=== PATIENT | male | born 1955 | race Two or more races ===

== ENCOUNTER 2020-11-05 18:54 | Emergency (ER) | payer MEDICAID ==
[~2020-11-05] VITALS: Ht 175.3 cm; Wt 99.8 kg
--- NOTE | 2020-11-05 19:30 | NUR ---
PATIENT BIBSELF C/O R FOOT PAIN X 2 DAYS + REDNESS. REFERRED BY URGENT CARE. PATIENT IS A/O X 4, RR EVEN AND UNLABORED, NO SOB NOTED. PATIENT CONNECTED TO MONITOR. WILL CONTINUE TO MONITOR.
--- NOTE | 2020-11-05 19:33 | NUR ---
BS NOTED AT 157
[2020-11-05] MEDS ORDERED: ACETAMINOPHEN ES 500 MG TABLET ONE (19:52)
[2020-11-05] MEDS: ACETAMINOPHEN 325 MG TABLET PO ONE (19:55)
[2020-11-05] MEDS ORDERED: AMOX-430 PO (20:11)
[2020-11-05] MEDS ORDERED: TRAM50TA2 PO (20:11)
[2020-11-05] MEDS ORDERED: ACET-2605 PO (20:11)
[2020-11-05] MEDS ORDERED: SULF1TAB48 PO (20:11)
[2020-11-05] MEDS ORDERED: SULFAMETH/TRIMETH 800/160 MG 1 UDTAB TABLET ONE (20:22)
[2020-11-05] MEDS ORDERED: TDAP [DIPH/PERTUSSIS/TET] 0.5 ML VIAL IM ONE ×2 (20:23→20:31)
[2020-11-05] MEDS ORDERED: AMOX/CLAVULANATE 875 MG TABLET ONE (20:23)
[2020-11-05] MEDS: AMOX/CLAVULANATE 875 MG TABLET PO ONE (20:31)
[2020-11-05] MEDS: SULFAMETH/TRIMETH 800/160 MG 1 UDTAB TABLET PO ONE (20:31)
[2020-11-05] MEDS: TDAP [DIPH/PERTUSSIS/TET] 0.5 ML VIAL IM ONE (20:32)
[2020-11-05 20:36] VITALS: BP 131/68
--- NOTE | 2020-11-05 20:37 | NUR ---
Patient discharged to home in stable condition. RX and Written and verbal after care instructions given. Patient verbalizes understanding of instruction.
== END 2020-11-05 20:37 | disposition home or self-care (01) ==
LOC: ER 19:03
DX: S91.111A Laceration without foreign body of right great toe without damage to nail, initial encounter (principal); S99.821A Other specified injuries of right foot, initial encounter; L03.115 Cellulitis of right lower limb; I10 Essential (primary) hypertension; E11.9 Type 2 diabetes mellitus without complications; F17.200 Nicotine dependence, unspecified, uncomplicated; Z79.899 Other long term (current) drug therapy; W22.8XXA Striking against or struck by other objects, initial encounter; Y93.89 Activity, other specified; Y92.89 Other specified places as the place of occurrence of the external cause; Y99.8 Other external cause status
CPT/HCPCS: 73630-TC; 82962-TC; 90715

== ENCOUNTER 2020-11-08 15:33 | Emergency (ER) | payer MEDICAID ==
[~2020-11-08] VITALS: Ht 177.8 cm; Wt 81.6 kg
[~2020-11-08 15:33] MED LIST: ACET-2605 PO; AMOX-430 PO; SULF1TAB48 PO; TRAM50TA2 PO
--- NOTE | 2020-11-08 16:08 | NUR ---
BIBWIFE FROM HOME TO ER BED 4. AAOX4. NOT IN RESP DISTRESS. AMBULATORY W/ A LIMP. CAME IN FOR R FOOT PAIN, SWELLING AND REDNESS X 3 DAYS. PAIN IS 9/10. PROVIDER WAS AT THE BEDSIDE FOR EVAL. ORDERS RECEIVED, NOTED AND CARRIED OUT. IV LINE ESTABLISHED ON R AC 18G, BLOOD DRAWN AND GIVEN TO PHLEB AT THE BEDSIDE.
--- NOTE | 2020-11-08 16:11 | NUR ---
PATIENT CAME INTO ER FOR A re-check (cellulitis). AOX4, NO SOB NOTED, NO C/O PAIN, NO S/O ANY ACUTE DISTRESS NOTED. KEPT COMFORTABLE IN BED. WILL CONTINUE TO MONITOR
[2020-11-08 16:17] LABS: BASOPHILS % (AUTO) 0.1 % (0.0-2.0); EOSINOPHILS % (AUTO) 1.1 % (0.0-6.0); HEMATOCRIT 38 % (39-51); HEMOGLOBIN 12.6 g/dL (13.5-17.5); LYMPHOCYTES # (AUTO) 1.7 K/uL (0.8-4.8); LYMPHOCYTES % (AUTO) 17.2 % (20.0-44.0); MEAN CORPUSCULAR HGB CONC 33 g/dl (31.0-36.0); MEAN CORPUSCULAR VOLUME 91 fL (80-96); MONOCYTES # (AUTO) 0.8 K/uL (0.1-1.30); MONOCYTES % (AUTO) 7.9 % (2.0-12.0); NEUTROPHILS # (AUTO) 7.1 K/uL (1.8-8.9); NEUTROPHILS % (AUTO) 73.7 % (43.0-81.0); PLATELET COUNT (AUTO) 217 K/uL (150-450); RED BLOOD CELL COUNT(AUTO) 4.16 MIL/uL (4.5-6.0); WHITE BLOOD COUNT (AUTO) 9.7 K/uL (4.3-11.0)
[2020-11-08] MEDS ORDERED: METF-442 PO (16:54)
[2020-11-08] MEDS ORDERED: AMLO2.5T4 PO (16:54)
[2020-11-08] MEDS ORDERED: LISI10TA29 PO (16:54)
[2020-11-08] MEDS ORDERED: GABA300C PO (16:54)
[2020-11-08] MEDS ORDERED: ASPI-1498 PO (16:54)
[2020-11-08] MEDS ORDERED: METO25TA4 PO (16:54)
[2020-11-08] MEDS ORDERED: VANCOMYCIN 1 GM VIAL ONE (16:55)
[2020-11-08] MEDS ORDERED: PIPERACILLIN /TAZOBACTAM 3.375 G VIAL IV ONE (16:55)
[2020-11-08 16:56] LABS: CHLORIDE 99 mmol/L (98-107); GLUCOSE 235 mg/dL (74-106); POTASSIUM 4.4 mmol/L (3.5-5.1); SODIUM SERUM 136 mmol/L (136-145)
[2020-11-08] MEDS ORDERED: ACETAMINOPHEN ES 500 MG TABLET ONE (16:56)
[2020-11-08 16:57] LABS: ALKALINE PHOSPHATASE 51 U/L (46-116); BILIRUBIN,DIRECT 0.1 mg/dL (0.0-0.2); CALCIUM, SERUM 9.3 mg/dL (8.5-10.1); UREA NITROGEN, BLOOD 12 mg/dL (7-18)
[2020-11-08] MEDS ORDERED: ACETAMINOPHEN 325 MG TABLET PO ONE (17:00)
[2020-11-08] MEDS ORDERED: PIPERACILLIN /TAZOBACTAM 3.375 G in IV D5W 50 ML IV ONE (17:00)
[2020-11-08] MEDS ORDERED: IV NS 0.9% 1,000 ML BAG IV ONE (17:00)
[2020-11-08 17:06] LABS: CARBON DIOXIDE 30 mmol/L (21-32); CREATININE 0.9 mg/dL (0.6-1.3)
[2020-11-08 17:07] LABS: ALANINE AMINOTRANSFERASE 16 U/L (12-78); ALBUMIN 3.3 g/dL (3.4-5.0); ASPARTATE AMINOTRANSFERASE 8 U/L (15-37); BILIRUBIN,TOTAL 0.4 mg/dL (0.2-1.0); TOTAL PROTEIN, SERUM 7.5 g/dL (6.4-8.2)
[2020-11-08] MEDS: VANCOMYCIN 1 GM in IV D5W 250 ML IV ONE ×2 (17:17→17:31)
--- NOTE | 2020-11-08 17:54 | NUR ---
Per Carolyn [phone] "Dr Smith will call you back - Pt is [place]/capitated. We will transfer."
--- NOTE | 2020-11-08 18:09 | NUR ---
covid swab done and sent to the lab
--- NOTE | 2020-11-08 19:30 | NUR ---
RECEIVED REPORT FOR EDUARDO, PATIENT VSS, IN NO ACUTE DISTRESS.
--- NOTE | 2020-11-08 21:04 | NUR ---
Marzena barger in [facility] - 11/08/20 at 2206 by PATRICIA MICHALE STOVALL
--- NOTE | 2020-11-08 22:21 | NUR ---
PT ACCEPTED AT THE [facility]. PT GOING TO ROOM 206A. NURSE TO NURSE REPORT [phone] GRETTA HERNANDEZ. ENROLLED AGENT ETA @ 1046 BY [facility]
[2020-11-08] MEDS ORDERED: CALCIUM CARBONATE 500 MG TAB.CHEW ONE (22:24)
[2020-11-08] MEDS ORDERED: CALCIUM CARBONATE 500 MG TAB.CHEW PO ONE (22:30)
--- NOTE | 2020-11-08 23:13 | NUR ---
REPORT GIVEN TO TRANSPORT TEAM FOR EDUARDO. AND TRANSFERRING RESPONSIBILITIES.
--- NOTE | 2020-11-08 23:22 | NUR ---
REPORT GIVEN TO HAKAN GLYNN AT [facility] FOR EDUARDO.
[2020-11-08 23:24] VITALS: BP 131/54
== END 2020-11-08 23:24 | disposition short-term general hospital (02) ==
LOC: EDUNIT# 15:33 → ER 15:49
DX: L03.115 Cellulitis of right lower limb (principal); S91.111D Laceration without foreign body of right great toe without damage to nail, subsequent encounter; X58.XXXD Exposure to other specified factors, subsequent encounter; Z87.891 Personal history of nicotine dependence; E11.65 Type 2 diabetes mellitus with hyperglycemia; Z79.84 Long term (current) use of oral hypoglycemic drugs; I10 Essential (primary) hypertension; D64.9 Anemia, unspecified; Z20.822 Contact with and (suspected) exposure to COVID-19; R94.31 Abnormal electrocardiogram [ECG] [EKG]
CPT/HCPCS: 36415; 71045; 80048; 80076; 83605 ×2; 85025; 87040 ×2; 87426; 93005; 96365; 96367; 99285; C9803; J2543 ×2; J3370; J7060

== ENCOUNTER 2021-11-22 05:14 | Inpatient (IN) | payer MEDICAID ==
[~2021-11-22] VITALS: Ht 167.6 cm; Wt 113.4 kg
[~2021-11-22 05:14] MED LIST changes: -ACET-2605 PO; +AMLO2.5T4 PO; -AMOX-430 PO; +ASPI-1498 PO; +GABA300C PO; +LISI10TA29 PO; +METF-442 PO; +METO25TA4 PO; -SULF1TAB48 PO; -TRAM50TA2 PO
--- NOTE | 2021-11-22 05:35 | NUR ---
BIBWIFE C/O EPIGASTRIC PAIN X1DAY +N/V -D. PLACED COMFORTABLY IN BED. VITALS CHECKED.
--- NOTE | 2021-11-22 06:08 | NUR ---
US AT BEDSIDE
--- NOTE | 2021-11-22 06:12 | NUR ---
IV CANNULA G18 INSERTED ON RIGHT AC. BLOOD DRAWN AND SENT TO LAB
--- NOTE | 2021-11-22 06:13 | NUR ---
EKG DONE AT BEDSIDE
[2021-11-22 06:21] LABS: BASOPHILS % (AUTO) 0.2 % (0.0-2.0); EOSINOPHILS % (AUTO) 0.8 % (0.0-6.0); HEMATOCRIT 38 % (39-51); HEMOGLOBIN 12.6 g/dL (13.5-17.5); LYMPHOCYTES # (AUTO) 1.3 K/uL (0.8-4.8); LYMPHOCYTES % (AUTO) 15.5 % (20.0-44.0); MEAN CORPUSCULAR HGB CONC 33 g/dl (31.0-36.0); MEAN CORPUSCULAR VOLUME 88 fL (80-96); MONOCYTES # (AUTO) 0.3 K/uL (0.1-1.30); MONOCYTES % (AUTO) 3.9 % (2.0-12.0); NEUTROPHILS # (AUTO) 6.9 K/uL (1.8-8.9); NEUTROPHILS % (AUTO) 79.6 % (43.0-81.0); PLATELET COUNT (AUTO) 178 K/uL (150-450); RED BLOOD CELL COUNT(AUTO) 4.31 MIL/uL (4.5-6.0); WHITE BLOOD COUNT (AUTO) 8.7 K/uL (4.3-11.0)
[2021-11-22] MEDS ORDERED: ONDANSETRON HCL/PF - ER 4 MG/2 ML VIAL IV ONE (06:30)
[2021-11-22] MEDS ORDERED: IV NS 0.9% 1,000 ML IV ONE (06:30)
[2021-11-22] MEDS ORDERED: MORPHINE SULFATE INJ 2 MG/ML DISP.SYRIN IV ONE (06:30)
[2021-11-22 06:35] LABS: ALANINE AMINOTRANSFERASE 16 U/L (12-78); ALBUMIN 3.7 g/dL (3.4-5.0); ALKALINE PHOSPHATASE 36 U/L (46-116); ASPARTATE AMINOTRANSFERASE 11 U/L (15-37); BILIRUBIN,DIRECT 0.1 mg/dL (0.0-0.2); BILIRUBIN,TOTAL 0.2 mg/dL (0.2-1.0); CALCIUM, SERUM 8.5 mg/dL (8.5-10.1); CARBON DIOXIDE 27 mmol/L (21-32); CHLORIDE 102 mmol/L (98-107); GLUCOSE 249 mg/dL (74-106); LIPASE 166 U/L (73-393); POTASSIUM 4.7 mmol/L (3.5-5.1); SODIUM SERUM 135 mmol/L (136-145); TOTAL PROTEIN, SERUM 6.8 g/dL (6.4-8.2); UREA NITROGEN, BLOOD 19 mg/dL (7-18)
[2021-11-22] MEDS ORDERED: ONDANSETRON HCL/PF 4 MG/2 ML VIAL ONE (06:38)
[2021-11-22] MEDS ORDERED: MORPHINE SULFATE INJ 4 MG/ML DISP.SYRIN ONE (06:38)
--- NOTE | 2021-11-22 06:48 | NUR ---
SWEETBREAD TRIMMER AT BEDSIDE.
--- NOTE | 2021-11-22 07:16 | NUR ---
PATIENT BROUGHT TO CT DEPT
--- NOTE | 2021-11-22 07:16 | NUR ---
COVID SWAB DONE AND SENT TO LAB
--- NOTE | 2021-11-22 07:16 | NUR ---
SEEN BY DR HARO AT BEDSIDE.
[2021-11-22] MEDS ORDERED: ENOXAPARIN SODIUM 80 MG/0.8 ML DISP.SYRIN SQ ONE ×2 (07:30→08:15)
[2021-11-22 08:00] LABS: BILIRUBIN,URINE NEGATIVE (NEGATIVE); COLOR,URINE YELLOW (YELLOW); LEUKOCYTE ESTERASE ,URINE NEGATIVE (NEGATIVE); NITRITE, URINE NEGATIVE (NEGATIVE); PH,URINE 5.5 (5.0-8.0); PROTEIN,URINE NEGATIVE (NEGATIVE); UGLUCOSE 250 MG/DL mg/dL (NEGATIVE); UROBILINOGEN,URINE 0.2 EU/dL (0.2)
[2021-11-22 08:25] LABS: RBC,URINE 0-2 /HPF (0-2); WBC,URINE 0-2 /HPF (0-3)
[2021-11-22 08:26] LABS: BACTERIA,URINE Rare /HPF (None Seen); SQUAMOUS EPITHELIAL CELL,UR Rare /HPF (None Seen)
[2021-11-22] MEDS ORDERED: CHOL100043 PO (08:32)
[2021-11-22] MEDS ORDERED: IBUP-1957 PO (08:32)
[2021-11-22] MEDS ORDERED: SEMA0.25 SQ (08:32)
[2021-11-22] MEDS ORDERED: INSU100I26 SQ (08:32)
[2021-11-22] MEDS ORDERED: PANT40TA49 PO (08:32)
[2021-11-22] MEDS ORDERED: ASPI-1420 PO (08:32)
--- NOTE | 2021-11-22 08:40 | NUR ---
[facility]
--- NOTE | 2021-11-22 09:16 | NUR ---
PER FOLDER MACHINE ANA SENIOR [facility], AUTHORIZED TO STAY. WILL BE UNDER DR LIN.
[2021-11-22] MEDS ORDERED: Medication Not On Formulary EA (Semaglutide (Ozempic) 0.25 MG) SQ SCH (09:30)
[2021-11-22] MEDS ORDERED: AMLODIPINE BESYLATE 2.5 MG TABLET PO SCH (09:30)
[2021-11-22 09:45] LABS: THYROID STIMULATING HORMONE 0.912 uIU/mL (0.358-3.74)
--- NOTE | 2021-11-22 09:48 | NUR ---
DR. LIN SPEAKING WITH DR. AHMADI.
--- NOTE | 2021-11-22 10:55 | NUR ---
[facility] BED 316-2
--- NOTE | 2021-11-22 11:10 | NUR ---
REPORT GIVEN TO KIARA GLYNN OF TELE
--- NOTE | 2021-11-22 11:10 | NUR ---
190/87 [facility], MADE DR AHMADI AWARE. RECEIVED VERBAL ORDER OF HYDRALAZINE 20MG IVP. CARRIED OUT
[2021-11-22] MEDS ORDERED: hydrALAZINE HCL IV 20 MG VIAL ONE (11:14)
[2021-11-22] MEDS ORDERED: DEXTROSE 50%-WATER 50 ML DISP.SYRIN IV PRN (11:30)
[2021-11-22] MEDS ORDERED: hydrALAZINE HCL IV 20 MG VIAL IV PRN (11:30)
[2021-11-22] MEDS: BLOOD SUGAR DIAGNOSTIC 1 EACH STRIP VI SCH ×3 (12:00→21:30)
[2021-11-22] MEDS: ATORVASTATIN 40 MG TABLET PO SCH (12:00)
[2021-11-22] MEDS: GABAPENTIN 300 MG CAPSULE PO SCH ×2 (12:00→17:24)
[2021-11-22] MEDS: LISINOPRIL (20MG) 20 MG TABLET PO SCH (12:00)
[2021-11-22] MEDS: ASPIRIN EC 81 MG TABLET.DR PO SCH (12:00)
--- NOTE | 2021-11-22 12:30 | NUR ---
RN ADMITTING NOTES PATIENT CAME FROM ED VIA GURNEY ACCOMPANIED BY TWO ER STAFF. PATIENT IS ON ROOM AIR, NO S/S OF RESPIRATORY DISTRESS. PATIENT IS ABLE TO AMBULATE TO BED, STEADY GAIT. PATIENT IS A/O x4. PATIENT VITAL SIGNS TAKEN AND STABLE. TELEMETRY MONITORING EXTERNAL PADS ARE APPLIED TO PATIENT. SHOWS SINUS RHYTHM WITH A HR OF 62. NO S/S OF CARDIAC DISTRESS OR DISCOMFORT. IV ACCESS R AC #20 G SL, INTACT AND PATENT. FULL BODY ASSESSMENT COMPLETED: CARDIAC HEART SOUNDS WNL, RESPIRATORY LUNG SOUNDS CLEAR, GI SOFT, ABDOMINAL SOUNDS PRESENT IN ALL FOUR QUADRANTS, AND SKIN IS INTACT. PATIENT STATES HIS PAIN IS ABOUT A 3/10 AND THAT HE IS OKAY. PATIENT SPEAKS OCCITAN HIS FIRST LANGUAGE, BUT UNDERSTANDS ARMENIAN. WILL CONTINUE TO MONITOR.
[2021-11-22 13:40] VITALS: BP 102/75
[2021-11-22] MEDS ORDERED: ACETAMINOPHEN 325 MG TABLET PO PRN (14:00)
[2021-11-22] MEDS ORDERED: HYDROCODONE/APAP 5/325MG TABLET PO PRN (14:00)
[2021-11-22] MEDS ORDERED: NITROGLYCERIN 0.4 MG/TAB BOTTLE SL PRN (14:00)
[2021-11-22] MEDS ORDERED: ZOLPIDEM TARTRATE 5 MG TABLET PO PRN (14:00)
[2021-11-22] MEDS ORDERED: ONDANSETRON HCL/PF 4 MG/2 ML VIAL IV PRN (14:00)
--- NOTE | 2021-11-22 14:09 | NUR ---
RN NOTES PATIENT COMPLAINED OF CHEST PAIN PRN NITROSTAT SL ADMINISTERED @1404, BP: 105/75, HR 55. WILL STAY WITH PATIENT AND REASSESS IN FIVE MINUTES.
[2021-11-22] MEDS: MORPHINE SULFATE INJ 2 MG/ML DISP.SYRIN IM PRN (14:13)
--- NOTE | 2021-11-22 14:15 | NUR ---
RN NOTES PATIENT BEGAN TO COMPLAIN OF EPIGASTRIC PAIN, DECLINED THE NEXT DOSE OF NITROSTAT AND WANTED PAIN MEDICATION. PRN MORPHINE ADMINISTERED IM @1413 FOR PAIN 02/15. NITROSTAT WASTE PUT IN RX DESTROYER WITNESSED BY RNCLYDE.
[2021-11-22] MEDS: PANTOPRAZOLE 40 MG TABLET.DR PO SCH (15:20)
[2021-11-22 16:00] VITALS: BP 155/68
[2021-11-22] MEDS: INSULIN REGULAR, HUMAN 100 UNIT/ML 3 ML VIAL SQ PRN (17:25)
--- NOTE | 2021-11-22 18:50 | NUR ---
BANK ACCOUNTANT CLOSING NOTE PATIENT IS A/O X 4, INTERMITTENTLY SLEEPING, ON ROOM AIR, NO S/S OF RESPIRATORY DISTRESS. PATIENT IS ABLE TO AMBULATE TO BED, STEADY GAIT. WITH AT BEDSINDE, NOT COMPLAINING OF PAIN AT THE MOMENT. PATIENT IS ON TELE MONITOR, SHOWS SINUS RHYTHM WITH PAC'S AND HR AT 65. NO S/S OF CARDIAC DISTRESS OR DISCOMFORT. IV ACCESS R AC #20 G SL, INTACT AND PATENT. PATIENT WITH OCCASIONAL EPIGASTRIC DISCOMFORT, WITH PAIN MANAGEMENT. ENDORSED TO NEXT SHIFT FOR CONTINUITY OF CARE.
--- NOTE | 2021-11-22 19:25 | NUR ---
RN NOTE PT AWAKE IN BED, A/OX4, ABLE TO VERBALIZE ALL NEEDS. AT BEDSIDE. PT DENIES PAIN AT THIS TIME. RESPIRATIONS EVEN/UNLABORED, ON ROOM AIR AND TAMY WELL, SPO2 95%. IV SITE: R-AC #20G INTACT/PATENT/FLUSHES WELL. PT FOR LEFT HEART CATH TOMORROW WITH . PT WILL BE NPO AT MIDNIGHT. PT VERBALIZED UNDERSTANDING. TELE MONITOR READING SR 66, WITH PAC'S. PT IN NO ACUTE DISTRESS. SAFETY MEASURES IN PLACE. WILL CONT TO MONITOR.
[2021-11-22 20:00] VITALS: BP 151/71
--- NOTE | 2021-11-22 20:28 | NUR ---
RN NOTE PER DR. BELL TO HOLD TigerTextDEMETRIS, PT IS GOING FOR L-HEART CATH TOMORROW
[2021-11-22] MEDS: ENOXAPARIN SODIUM 80 MG/0.8 ML DISP.SYRIN SQ SCH (20:41)
[2021-11-22] MEDS: INSULIN GLARGINE, 100 UNIT/ML CARTRIDGE SQ SCH (21:32)
[2021-11-23] VITALS: BP 154/64
[2021-11-23] MEDS: MORPHINE SULFATE INJ 2 MG/ML DISP.SYRIN IM PRN (01:13)
[2021-11-23 04:00] VITALS: BP 136/97
[2021-11-23] MEDS: BLOOD SUGAR DIAGNOSTIC 1 EACH STRIP VI SCH ×4 (06:23→22:31)
[2021-11-23] MEDS ORDERED: NITROGLYCERIN IN 5 % DEXTROSE 250 ML IV ONE (06:31)
[2021-11-23] MEDS ORDERED: IV NS 0.9% 1,000 ML ONE (06:33)
[2021-11-23] MEDS ORDERED: IODIXANOL 150 ML IV ONE (06:33)
[2021-11-23] MEDS ORDERED: IV SET PRIMARY PUMP SET 1 EA INFUS.SET MC ONE (06:33)
[2021-11-23] MEDS ORDERED: MIDAZOLAM HCL 2 MG/2ML VIAL ONE (06:34)
[2021-11-23] MEDS ORDERED: FENTANYL PF 100MCG/2ML AMPUL ONE (06:34)
--- NOTE | 2021-11-23 06:45 | NUR ---
RN NOTE PT PICKED UP BY 2 FORESTRY HUNTER RN'S. PT AWAKE/ALERT, IN NO DISTRESS, OBSERVED NPO @2200
[2021-11-23 06:47] LABS: BASOPHILS % (AUTO) 0.1 % (0.0-2.0); EOSINOPHILS % (AUTO) 0.6 % (0.0-6.0); HEMATOCRIT 37 % (39-51); HEMOGLOBIN 12.6 g/dL (13.5-17.5); LYMPHOCYTES % (AUTO) 19.4 % (20.0-44.0); MEAN CORPUSCULAR HGB CONC 34 g/dl (31.0-36.0); MEAN CORPUSCULAR VOLUME 87 fL (80-96); MONOCYTES # (AUTO) 0.7 K/uL (0.1-1.30); MONOCYTES % (AUTO) 6.4 % (2.0-12.0); NEUTROPHILS # (AUTO) 7.5 K/uL (1.8-8.9); NEUTROPHILS % (AUTO) 73.5 % (43.0-81.0); PLATELET COUNT (AUTO) 197 K/uL (150-450); RED BLOOD CELL COUNT(AUTO) 4.25 MIL/uL (4.5-6.0); WHITE BLOOD COUNT (AUTO) 10.2 K/uL (4.3-11.0)
[2021-11-23 06:51] LABS: ALBUMIN 3.5 g/dL (3.4-5.0); BILIRUBIN,TOTAL 0.4 mg/dL (0.2-1.0); CALCIUM, SERUM 8.4 mg/dL (8.5-10.1); CREATININE 0.8 mg/dL (0.6-1.3); MAGNESIUM 1.9 mg/dL (1.8-2.4); PHOSPHORUS 3.3 mg/dL (2.5-4.9); POTASSIUM 3.8 mmol/L (3.5-5.1); TOTAL PROTEIN, SERUM 6.6 g/dL (6.4-8.2)
[2021-11-23] MEDS ORDERED: LIDOCAINE HCL/MPF 1% 30 ML VIAL IJ ONE (07:11)
--- NOTE | 2021-11-23 07:30 | NUR ---
FINANCIAL ENGINEER OPENING NOTES RECEIVED REPORT FROM NURSE WELSH PATIENT IS IN CATH ALB FOR A PROCEDURE
[2021-11-23] MEDS ORDERED: NICARDIPINE HCL 25 MG/10 ML VIAL IV ONE (07:46)
--- NOTE | 2021-11-23 07:58 | NUR ---
RN NOTE Received critical value from Tod from lab at 0735, Troponin level is 449. Dr. Doll and Dr. Valdes notified.
--- NOTE | 2021-11-23 08:25 | NUR ---
RN NOTE Patient brought back to room 316-1 from the labor representative. Patient is stable with VS as follows: BP 127/67, HR 62, RR18, Temp 97.7, SPO2 92% on right index finger. TR band in place on the right wrist, intact with 16cc of air inflated. Right fingers with good capillary refill.Patient denies any pain or discomfort at this time. Will continue to monitor.
--- NOTE | 2021-11-23 08:40 | NUR ---
RN NOTE Patient remains stable with VS as follows: BP 129/55, HR 65, RR 18, Temp 97.3, SPO2 94%. Will continue to monitor.
--- NOTE | 2021-11-23 08:55 | NUR ---
RN NOTE Patient remains stable with VS as follows: BP 138/57, HR 59, RR 19, Temp 97.7, SPO2 95%. Will continue to monitor.
--- NOTE | 2021-11-23 09:10 | NUR ---
RN NOTE Patient remains stable with VS as follows: BP 137/66 HR 62, RR 18, Temp 98, SPO2 96%. Will continue to monitor.
--- NOTE | 2021-11-23 09:25 | NUR ---
RN NOTE Patient remains stable with VS as follows: BP 142/64, HR 63, RR 19, Temp 97.6, SPO2 97%. Will continue to monitor.
[2021-11-23] MEDS: ENOXAPARIN SODIUM 80 MG/0.8 ML DISP.SYRIN SQ SCH ×2 (09:27→22:13)
[2021-11-23] MEDS: CHOLECALCIFEROL 1,000 UNIT TABLET (VIT D3) PO SCH (09:27)
[2021-11-23] MEDS: GABAPENTIN 300 MG CAPSULE PO SCH ×2 (09:27→17:31)
[2021-11-23] MEDS: LISINOPRIL (20MG) 20 MG TABLET PO SCH (09:29)
[2021-11-23] MEDS: ATORVASTATIN 40 MG TABLET PO SCH (09:29)
[2021-11-23] MEDS: ASPIRIN EC 81 MG TABLET.DR PO SCH (09:29)
[2021-11-23] MEDS: AMLODIPINE BESYLATE 2.5 MG TABLET PO SCH (09:29)
[2021-11-23] MEDS: PANTOPRAZOLE 40 MG TABLET.DR PO SCH (09:34)
--- NOTE | 2021-11-23 10:02 | NUR ---
RN NOTE TR band on right wrist intact, 3cc of air removed. No signs of bleeding noted, with good capillary refill. SPO2 on right index finger 97%. Will continue to monitor.
--- NOTE | 2021-11-23 10:17 | NUR ---
RN NOTE TR band on right wrist intact, 3cc of air removed. No signs of bleeding noted, with good capillary refill. SPO2 on right index finger 96%. Will continue to monitor.
--- NOTE | 2021-11-23 10:32 | NUR ---
RN NOTE TR band on right wrist intact, 3cc of air removed. No signs of bleeding noted, with good capillary refill. SPO2 on right index finger 99%. Will continue to monitor.
--- NOTE | 2021-11-23 10:47 | NUR ---
RN NOTE TR band on right wrist intact, 3cc of air removed. No signs of bleeding noted, with good capillary refill. SPO2 on right index finger 98%. Will continue to monitor.
--- NOTE | 2021-11-23 11:02 | NUR ---
RN NOTE TR band on right wrist intact, 4cc of air removed. No signs of bleeding noted, with good capillary refill. SPO2 on right index finger 98%. TR band removed. Will continue to monitor.
[2021-11-23 12:00] VITALS: BP 129/62
--- NOTE | 2021-11-23 12:00 | NUR ---
RN NOTES PATIENT WENT TO MRI UNABLE TO CHECK BLOOD SUGAR
[2021-11-23 16:23] VITALS: BP 121/66
[2021-11-23] MEDS: INSULIN REGULAR, HUMAN 100 UNIT/ML 3 ML VIAL SQ PRN (17:38)
--- NOTE | 2021-11-23 19:18 | NUR ---
MS RN CLOSING NOTE Patient in bed, asleep. A/O x 4, able to make needs known. On room air, breathing evenly and unlabored. No SOB or s/s of distress noted. IV access on RAC #20 SL, intact and patent. Denies any pain or discomfort at this time. All needs attended to. Due meds given. On tele monitoring showing SR with PACs, HR on the 70's. Safety precautions maintained: bed in low, locked position; siderails up x 2; call light within reach. Will endorse to operation shift supervisor nurse for EDUARDO.
--- NOTE | 2021-11-23 19:20 | NUR ---
RN NOTE PT AWAKE IN BED, A/OX4. AT BEDSIDE. PT DENIES ANY PAIN AT THIS TIME. RESPIRATIONS EVEN/UNLABORED, ON ROOM AIR AND TAMY WELL, SPO2 95%. IV SITE: R-AC #20G INTACT/PATENT/FLUSHES WELL. PT S/P L-HEART CATH EARLIER TODAY. PT STABLE, NO DISTRESS NOTED. TELE MONITOR READING SR, HR 74. SAFETY MEASURES IN PLACE. WILL CONT TO MONITOR.
[2021-11-23 20:00] VITALS: BP 135/69
--- NOTE | 2021-11-23 20:30 | NUR ---
RN NOTE RECEIVED CALL FROM ALFREDO LYNN CM, STATING PT HAS ROOM @[facility] BUT THEY ARE UNABLE TO MAKE TRANSPORTATION ARRANGEMENT AT THIS TIME. CHARGE NURSE MADE AWARE AND WILL TRY TO CALL FOR TRANSPORTATION WELL.
--- NOTE | 2021-11-23 22:00 | NUR ---
RN NOTE CHARGE NURSE HAS BEEN CALLING FOR TRANSPORTATION BUT NONE AVAILABLE FOR [facility] TRANSPORT TONIGHT. ALSO, PER CHARGE NURSE, LEAH SANDOVAL CALLED AGAIN AND SAID THAT TRANSFER WILL NOT OCCUR TONIGHT SAID THAT PT IS AGAIN ON WAITING LIST AT [place]. PT INFORMED AND VERBALIZED UNDERSTANDING.
[2021-11-23] MEDS: INSULIN GLARGINE, 100 UNIT/ML CARTRIDGE SQ SCH (22:25)
[2021-11-23] MEDS: *INSULIN REGULAR(HUMULIN R)HUM 100 UNIT/ML VIAL SQ PRN (22:27)
[2021-11-24] VITALS: BP 132/52
--- NOTE | 2021-11-24 00:25 | NUR ---
RN NOTE O2 SAT 93%. PLACED O2 @2LPM VIA NC FOR THE NIGHT. PT VERBALIZED UNDERSTANDING. NO SOB/NO RESPIRATORY DISTRESS NOTED.
[2021-11-24 04:13] VITALS: BP 134/46
--- NOTE | 2021-11-24 07:30 | NUR ---
PROCESS CHEESE COOKER NOTES PT IN BED, AWAKE, ALERT AND ORIENTED, NO COMPLAINT OF PAIN OR ANY DISCOMFORT, RESPIRATIONS NORMAL, CALL LIGHT WITHIN REACH, EATING BREAKFAST, NEEDS ATTENDED.
[2021-11-24] MEDS: BLOOD SUGAR DIAGNOSTIC 1 EACH STRIP VI SCH ×4 (07:53→22:05)
[2021-11-24 08:00] VITALS: BP 157/71
[2021-11-24 08:06] LABS: AFP, TUMOR MARKER 1.2 ng/mL (0.0-8.4)
[2021-11-24] MEDS: GABAPENTIN 300 MG CAPSULE PO SCH ×2 (08:51→16:51)
[2021-11-24] MEDS: CHOLECALCIFEROL 1,000 UNIT TABLET (VIT D3) PO SCH (08:51)
[2021-11-24] MEDS: ATORVASTATIN 40 MG TABLET PO SCH (08:51)
[2021-11-24] MEDS: PANTOPRAZOLE 40 MG TABLET.DR PO SCH (08:51)
[2021-11-24] MEDS: ASPIRIN EC 81 MG TABLET.DR PO SCH (08:51)
[2021-11-24] MEDS: AMLODIPINE BESYLATE 2.5 MG TABLET PO SCH (08:52)
[2021-11-24] MEDS: LISINOPRIL (20MG) 20 MG TABLET PO SCH (08:52)
[2021-11-24] MEDS: ENOXAPARIN SODIUM 80 MG/0.8 ML DISP.SYRIN SQ SCH ×2 (08:58→20:36)
[2021-11-24] MEDS: INSULIN REGULAR, HUMAN 100 UNIT/ML 3 ML VIAL SQ PRN ×3 (12:27→22:06)
[2021-11-24 16:00] VITALS: BP 131/57
--- NOTE | 2021-11-24 18:20 | NUR ---
LABORER SALVAGE NOTES PT IN BED, AWAKE, ALERT AND ORIENTED, DENIES PAIN, NOT IN DISTRESS, CALL LIGHT WITHIN REACH, NEEDS ATTENDED, BS CHECKED, PM MEDS GIVEN, PT SEEN BY DR. LIN AND DR. HARO, AWAITING PLACEMENT AT [facility] PER CONSTRUCTION COST ESTIMATOR.
--- NOTE | 2021-11-24 19:12 | NUR ---
RN NOTES: RECEIVED LYING ON BED,A/OX4, DANISH, CAN COMMUNICATE IN ESTONIAN, ON O2 AT 1-2L/MIN VIA NC PRN, SPO2-97%,NON LABORED BREATHING, NO SOB NOTED, CONTINENT BOTH BOWEL AND BLADDER WITH BRP, ON TELE MONITOR,IN CANNULA RH#20, SALINE LOCK.ON INSULIN SLIDING SCALE. -ORIENTED TO UNIT AND STAFF .ON CLOSE WATCH.KEPT CALL LIGHT WITHIN EASY REACH, FALL AND SAFETY PRECAUTION OBSERVED.
[2021-11-24 20:00] VITALS: BP 148/69
[2021-11-24] MEDS: INSULIN GLARGINE, 100 UNIT/ML CARTRIDGE SQ SCH (22:04)
--- NOTE | 2021-11-24 22:10 | NUR ---
RN NOTES: BLOOD SUGAR CHECK-167, INSULIN GIVEN PER SCALE WILL CONTINUE TO MONITOR FOR SIGN OF HYPER/HYPOGLYCEMIA.GIVEN SNACKS.
[2021-11-25] VITALS: BP 134/65
[2021-11-25 04:00] VITALS: BP 160/75
--- NOTE | 2021-11-25 06:45 | NUR ---
RN NOTES: BLOOD SUGAR-169, GIVEN INSULIN PER SCALE, WILL CONTINUE TO MONITOR FOR SIGN OF HYPER/HYPOGLYCEMIA.
[2021-11-25] MEDS: INSULIN REGULAR, HUMAN 100 UNIT/ML 3 ML VIAL SQ PRN ×3 (06:48→17:15)
--- NOTE | 2021-11-25 07:25 | NUR ---
RN OPENING NOTES RECEIVED PATIENT I BED, AWAKE, A/O X4, VERBALLY RESPONSIVE. NO SIGNS OF ACUTE DISTRESS NOTED. ON ROOM AIR, NO SOB NOTED, BREATHING EVEN AND UNLABORED. DENIES ANY PAIN OR DISCOMFORT AT THIS TIME. ON TELE MONITOR, NOT ON ANY CARDIAC DISTRESS NOTED. WITH IV ACCESS ON RIGHT ANTECUBITAL AREA, #20G, INTACT AND PATENT, SALINE LOCKED. SAFETY MEASURE IN PLACE. BED IN LOWEST AND LOCKED POSITION, SIDE RAILS UP X2, CALL LIGHT PLACED WITHIN EASY REACH. WILL CONTINUE TO MONITOR PATIENT.
[2021-11-25] MEDS: BLOOD SUGAR DIAGNOSTIC 1 EACH STRIP VI SCH ×4 (07:30→21:49)
--- NOTE | 2021-11-25 07:30 | NUR ---
RN NOTES PATIENT 0730 BLOOD SUGAR CHEC K WAS DONE BY TIP OUT WORKER NURSE aT AROUND 0634 WITH BS OF 169
[2021-11-25 08:00] VITALS: BP 149/80
--- NOTE | 2021-11-25 08:02 | NUR ---
RN NOTES; STABLE IN THE NIGHT NO CHEST PAIN, NEEDS ATTENDED,STILL AWAITING FOR HIS PLACEMENT IN THE HOSPITAL, ENDORSED FOR CONTINUITY OF CARE.
[2021-11-25] MEDS: PANTOPRAZOLE 40 MG TABLET.DR PO SCH (08:36)
[2021-11-25] MEDS: ATORVASTATIN 40 MG TABLET PO SCH (08:36)
[2021-11-25] MEDS: ASPIRIN EC 81 MG TABLET.DR PO SCH (08:36)
[2021-11-25] MEDS: LISINOPRIL (20MG) 20 MG TABLET PO SCH (08:37)
[2021-11-25] MEDS: AMLODIPINE BESYLATE 2.5 MG TABLET PO SCH (08:38)
[2021-11-25] MEDS: CHOLECALCIFEROL 1,000 UNIT TABLET (VIT D3) PO SCH (08:38)
[2021-11-25] MEDS: GABAPENTIN 300 MG CAPSULE PO SCH ×2 (08:38→17:19)
[2021-11-25] MEDS: ENOXAPARIN SODIUM 80 MG/0.8 ML DISP.SYRIN SQ SCH ×2 (08:44→21:57)
[2021-11-25] MEDS ORDERED: GADOTERATE MEGLUMINE 10 MMOL/20 ML VIAL IV ONE (14:48)
[2021-11-25 15:53] VITALS: BP 135/75
--- NOTE | 2021-11-25 18:48 | NUR ---
RN CLOSING NOTES PATIENT IN BED, AWAKE, A/O X4, ABLE TO MAKE NEEDS KNOWN, NO SIGNS OF ACUTE DISTRESS NOTED. NO C/O CHEST PAIN, ON TELE MONITOR SHOWING SINUS RHYTHM, HR @70. IV ACCESS ON RIGHT ANTECUBITAL #20G, INTACT AND PATENT, SALINE LOCKED. ALL DUE MEDS GIVEN, TOLERATED WELL. STILL AWAITING FOR BED AVAILABILITY FOR TRANSFER TO [facility] @ [facility]. WILL ENDORSE TO NEXT SHIFT FOR CONTINUITY OF CARE.
--- NOTE | 2021-11-25 19:10 | NUR ---
TELE/RN OPENING NOTE RECEIVED PATIENT RESTING IN BED. AWAKE, ALERT AND ORIENTED X 4. ABLE TO MAKE NEEDS KNOWN. DENIES PAIN AT THIS TIME. CONTINUES ON ROOM AIR WITH NO S/SX OF RESPIRATORY DISTRESS NOTED. IV ACCESS TO RIGHT AC #20G INTACT, PATENT AND SALINE LOCKED. PATIENT IS AMBULATORY WITH STEADY GAIT. AWAITING BED FOR TRANSFER TO [facility]. CALL LIGHT WITHIN REACH. ASPIRATION, FALL AND SAFETY PRECAUTIONS MAINTAINED. ALL NEEDS ATTENDED TO AT THIS TIME.
[2021-11-25 20:00] VITALS: BP 126/69
[2021-11-25] MEDS: INSULIN GLARGINE, 100 UNIT/ML CARTRIDGE SQ SCH (22:04)
[2021-11-25] MEDS: *INSULIN REGULAR(HUMULIN R)HUM 100 UNIT/ML VIAL SQ PRN (22:07)
[2021-11-26] VITALS: BP 119/54
[2021-11-26 04:00] VITALS: BP_SYST 134; BP_SYST 139; BP_DIAS 69; BP_DIAS 75
--- NOTE | 2021-11-26 06:10 | NUR ---
TELE/RN CLOSING NOTE PATIENT CURRENTLY RESTING IN BED. AWAKE, ALERT AND ORIENTED X 4. ABLE TO MAKE NEEDS KNOWN. DENIES PAIN AT THIS TIME. CONTINUES ON ROOM AIR WITH NO S/SX OF RESPIRATORY DISTRESS NOTED. IV ACCESS TO RIGHT AC #20G INTACT, PATENT AND SALINE LOCKED. PATIENT IS AMBULATORY WITH STEADY GAIT. TELE MONITOR IN PLACE WITH CURRENT READING SR HR 61. AWAITING BED FOR TRANSFER TO [facility][1]. CALL LIGHT WITHIN REACH. ASPIRATION, FALL AND SAFETY PRECAUTIONS MAINTAINED. ALL NEEDS ATTENDED TO AT THIS TIME. WILL ENDORSE PLAN OF CARE TO ONCOMING SHIFT RN.
[2021-11-26] MEDS: BLOOD SUGAR DIAGNOSTIC 1 EACH STRIP VI SCH ×4 (06:24→22:01)
[2021-11-26] MEDS: INSULIN REGULAR, HUMAN 100 UNIT/ML 3 ML VIAL SQ PRN ×3 (06:26→17:09)
--- NOTE | 2021-11-26 07:40 | NUR ---
RN OPENING NOTE PATIENT AWAKE IN BED RESTING. A/O X4. NO S/S OF PAIN NOTED AT THIS TIME. ON ROOM AIR, NO DISTRESS OR SHORTNESS OF BREATH NOTED. IV ACCESS RAC #20G, INTACT, PATENT AND FLUSHING WELL. PATIENT ON EXTERNAL TELEGRAPH REPEATER MECHANIC WITH CURRENT READING OF SR AND HR OF 60'S, NO CARDIAC DISTRESS NOTED. FALL AND SAFETY MEASURES IN PLACE, BED ALARM ON, BED IN LOW AND LOCK POSITION, CALL LIGHT AND TABLE WITHIN EASY REACH, SIDE RAILS UP X2. WILL CONTINUE TO MONITOR.
[2021-11-26 07:48] LABS: CALCIUM, SERUM 8.7 mg/dL (8.5-10.1); CARBON DIOXIDE 28 mmol/L (21-32); CHLORIDE 103 mmol/L (98-107); CREATININE 0.9 mg/dL (0.6-1.3); GLUCOSE 190 mg/dL (74-106); POTASSIUM 4.4 mmol/L (3.5-5.1); SODIUM SERUM 137 mmol/L (136-145); UREA NITROGEN, BLOOD 16 mg/dL (7-18)
[2021-11-26 08:00] VITALS: BP 144/81
[2021-11-26] MEDS: ASPIRIN EC 81 MG TABLET.DR PO SCH (09:11)
[2021-11-26] MEDS: PANTOPRAZOLE 40 MG TABLET.DR PO SCH (09:11)
[2021-11-26] MEDS: GABAPENTIN 300 MG CAPSULE PO SCH ×2 (09:11→16:39)
[2021-11-26] MEDS: LISINOPRIL (20MG) 20 MG TABLET PO SCH (09:11)
[2021-11-26] MEDS: ATORVASTATIN 40 MG TABLET PO SCH (09:12)
[2021-11-26] MEDS: CHOLECALCIFEROL 1,000 UNIT TABLET (VIT D3) PO SCH (09:12)
[2021-11-26] MEDS: ENOXAPARIN SODIUM 80 MG/0.8 ML DISP.SYRIN SQ SCH ×2 (09:13→22:06)
[2021-11-26] MEDS: AMLODIPINE BESYLATE 2.5 MG TABLET PO SCH (09:16)
[2021-11-26 11:49] VITALS: BP 144/67
[2021-11-26 16:00] VITALS: BP 148/77
--- NOTE | 2021-11-26 18:40 | NUR ---
RN CLOSING NOTE PATIENT AWAKE IN BED RESTING. A/O X4. NO S/S OF PAIN NOTED AT THIS TIME. ON ROOM AIR, NO DISTRESS OR SHORTNESS OF BREATH NOTED. IV ACCESS RAC #20G, INTACT, PATENT AND FLUSHING WELL. PATIENT ON EXTERNAL CIGAR INSPECTOR WITH CURRENT READING OF SR AND HR OF 61, NO CARDIAC DISTRESS NOTED. FALL AND SAFETY MEASURES IN PLACE, BED ALARM ON, BED IN LOW AND LOCK POSITION, CALL LIGHT AND TABLE WITHIN EASY REACH, SIDE RAILS UP X2. WILL ENDORSE TO INSULATION BOARD HEAD SAW OPERATOR.
--- NOTE | 2021-11-26 19:30 | NUR ---
TELE/RN OPENING NOTE RECEIVED PATIENT RESTING IN BED. AWAKE, ALERT AND ORIENTED X 4. ABLE TO MAKE NEEDS KNOWN. DENIES PAIN AT THIS TIME. CONTINUES ON ROOM AIR WITH NO S/SX OF RESPIRATORY DISTRESS NOTED. IV ACCESS TO RIGHT AC #20G INTACT, PATENT AND SALINE LOCKED. PATIENT IS AMBULATORY WITH STEADY GAIT. PATIENT ACCEPTED TO [facility] FOR HLOC TRANSFER. UNIT WILL BE 5W AND BED IS 5226. AWAITING CALL FROM TRANSPORTATION. WILL UPDATE PATIENT. CALL LIGHT WITHIN REACH. ASPIRATION, FALL AND SAFETY PRECAUTIONS MAINTAINED. ALL NEEDS ATTENDED TO AT THIS TIME.
--- NOTE | 2021-11-26 20:00 | NUR ---
TELE/RN NOTE SPOKE TO NARESH AT [facility] TRANSFER CENTER. STATES SHE REQUIRES PATIENTS RAPID COVID-19 TEST RESULT FAXED AND TIME OF CERTIFIED SURGICAL TECH/FIRST ASSISTANT FOR PATIENT. NO CALL YET FROM [facility]. WILL FAX COVID 19 TEST AND FOLLOW UP WITH [facility].
--- NOTE | 2021-11-26 20:45 | NUR ---
TELE/RN NOTE [facility] ABLE TO TRANSFER PATIENT AFTER MIDNIGHT TONIGHT. NOTIFIED ELMER AT [facility] TRANSFER CENTER. ALSO CONFIRMED THEY RECEIVED FAXED COVID 19 RESULT. PER ELMER THEY RECEIVED FAXED RESULT. WILL CALL FOR RN REPORT PRIOR TO TRANSFER.
--- NOTE | 2021-11-26 21:00 | NUR ---
TELE/RN NOTE PATIENT SIGNED TRANSFER FORMS. ALL DISCHARGE PAPERWORK REVIEWED WITH PATIENT. WILL REVIEW BELONGINGS LIST PRIOR TO DISCHARGE.
[2021-11-26] MEDS ORDERED: INSULIN GLARGINE, 100 UNIT/ML CARTRIDGE SQ SCH (22:00)
[2021-11-26] MEDS: *INSULIN REGULAR(HUMULIN R)HUM 100 UNIT/ML VIAL SQ PRN (22:28)
[2021-11-26 23:12] VITALS: BP 139/72
--- NOTE | 2021-11-26 23:15 | NUR ---
TELE/SHELVING SUPERVISOR NOTE [facility] ARRIVED TO PICK PATIENT UP VIA GURNEY AND 2 CHIEF METER READER. PATIENT IS ALERT AND ORIENTED X 4. ABLE TO AMBULATE WITH STEADY GAIT. TELE READING PRIOR TO TRANSFER IS SR HR 78. VS STABLE ON DISCHARGE. REPORT GIVEN TO NAMITA ON 5N. ALL BELONGINGS SENT WITH PATIENT. ALL DISCHARGE PAPERWORK SIGNED. SENT PATIENT WITH PAPERWORK AND CD. PATIENT LEFT AT APPROX. 2315.
== END 2021-11-26 23:00 | disposition short-term general hospital (02) | DRG 190 ==
LOC: ER 05:20 → TRANSITION 10:45 → TELE 10:58
PROVIDERS: ADMIT Internal Medicine; ATTEND Internal Medicine
PROC: 4A023N7 Measurement of Cardiac Sampling and Pressure, Left Heart, Percutaneous Approach (ICD-10-PCS; principal; 2021-11-23)
PROC: B211YZZ Fluoroscopy of Multiple Coronary Arteries using Other Contrast (ICD-10-PCS; 2021-11-23)
DX: I21.4 Non-ST elevation (NSTEMI) myocardial infarction (principal); C78.7 Secondary malignant neoplasm of liver and intrahepatic bile duct; E46 Unspecified protein-calorie malnutrition; C80.1 Malignant (primary) neoplasm, unspecified; E11.65 Type 2 diabetes mellitus with hyperglycemia; K76.0 Fatty (change of) liver, not elsewhere classified; E78.5 Hyperlipidemia, unspecified; N39.0 Urinary tract infection, site not specified; I10 Essential (primary) hypertension; Z20.822 Contact with and (suspected) exposure to COVID-19; Z79.4 Long term (current) use of insulin; Z79.82 Long term (current) use of aspirin; Z79.84 Long term (current) use of oral hypoglycemic drugs; Z79.899 Other long term (current) drug therapy; Z87.891 Personal history of nicotine dependence; K76.9 Liver disease, unspecified; Z68.41 Body mass index [BMI] 40.0-44.9, adult; E66.9 Obesity, unspecified
CPT/HCPCS: 36415; 71045-TC; 74183; 76705-TC; 80048-TC; 80053-TC; 80061-TC; 80076-TC; 81001; 82105; 82378; 82962-TC; 83690-TC; 83735-TC; 84100-TC; 84439-TC; 84443-TC; 84484-TC; 85025-TC; 85730-TC; 87081-TC; 93307-TC; 94799-TC; A9575; C9803; G0378; G0500; J0360; J1644; J1650; J1815; J2250; J2270; J2405; J3010; J3490; J7030; Q9967; U0003